=== PATIENT | female | born 1975 | race Caucasian/White ===

== ENCOUNTER → 2023-08-22 17:21 | Outpatient (REF) | payer BC, SELFPAY | LOC: MRI 17:21 | PROVIDERS: ATTENDING PHYSICIAN Surgery Vascular Surgery; FAMILY PHYSICIAN Nurse Practitioner Family | DX: I72.8 Aneurysm of other specified arteries (principal); I77.3 Arterial fibromuscular dysplasia | CPT/HCPCS: 74185; A9585 ==

== ENCOUNTER → 2023-10-19 08:24 | Outpatient (REF) | payer BC, SELFPAY | LOC: WDC 08:24 | PROVIDERS: ATTENDING PHYSICIAN Nurse Practitioner Family | DX: Z12.31 Encounter for screening mammogram for malignant neoplasm of breast (principal) | CPT/HCPCS: 77063; 77067 ==

== ENCOUNTER → 2024-09-23 06:47 | Outpatient (REF) | payer BC, SELFPAY | LOC: RAD 06:47 | PROVIDERS: ATTENDING PHYSICIAN Surgery Vascular Surgery; FAMILY PHYSICIAN Nurse Practitioner Family | DX: I72.8 Aneurysm of other specified arteries (principal) | CPT/HCPCS: 74174; Q9967 ==

== ENCOUNTER → 2024-10-22 08:28 | Outpatient (REF) | payer BC, SELFPAY | LOC: WDC 08:28 | PROVIDERS: ATTENDING PHYSICIAN Nurse Practitioner Family | DX: Z12.31 Encounter for screening mammogram for malignant neoplasm of breast (principal) | CPT/HCPCS: 77063; 77067 ==

== ENCOUNTER 2024-12-09 06:31 | Day surgery (SDC) | payer BC, SELFPAY | END 2024-12-09 09:04 | disposition home or self-care (01) | LOC: GI 06:31 | PROVIDERS: ATTENDING PHYSICIAN Internal Medicine | DX: Z12.11 Encounter for screening for malignant neoplasm of colon (principal); K57.30 Diverticulosis of large intestine without perforation or abscess without bleeding; K64.8 Other hemorrhoids; Z83.719 Family history of colon polyps, unspecified | CPT/HCPCS: G0121 ==